=== PATIENT | male | born 1955 ===

== ENCOUNTER 2021-09-14 08:18 | Day surgery (SDC) | payer BC ==
[2021-09-14] VITALS (11 sets, daily range): BP systolic 102–134; BP diastolic 64–78; PULSE 45–64; TEMP 97.9–98.4
[~2021-09-14] VITALS: Ht 182.9 cm; Wt 132.8 kg
[2021-09-14] MEDS ORDERED: FLOMAX 0.40.4 MG/CAP PO (08:52)
[2021-09-14] MEDS ORDERED: BETAPACE 120MG120 MG PO (08:53)
[2021-09-14] MEDS ORDERED: ENTRESTO 24 MG1 EACH PO (08:53)
[2021-09-14] MEDS ORDERED: CIPRO 500MG TA500 MG PO (08:54)
[2021-09-14] MEDS ORDERED: XARELTO20 MG PO (08:55)
[2021-09-14] MEDS ORDERED: ZETIA 10MG TAB10 MG PO (08:56)
[2021-09-14] MEDS ORDERED: LIPITOR 80MG80 MG PO (08:56)
[2021-09-14] MEDS ORDERED: PYRIDIUM 100MG100 MG PO (10:27)
--- NOTE | 2021-09-14 12:30 | NUR ---
PT TO FLOOR FROM SURGERY IN ROOM 350. IN DAUGHTER ARE IN THE ROOM W PT. VS STABLE WITH BRADYCARDIA. PT REPORTS PAIN IN HIS LEFT HIP THAT HE HAD BEFORE THE PROCEDURE. IV FLUIDS RUNNING AT 100ML/HR IN LT WRIST. PT ON 2L OF O2. CBI OUTPUTTING RED/PINK URINE. NO OTHER NEEDS AT THIS TIME. CALL LIGHT WITHIN REACH.
--- NOTE | 2021-09-15 02:03 | NUR ---
PATIENT IN BED. ALERT AND ORIENTED. HS MEDS PER EMAR. MORALES TO DD WITH PINK URINE AND SOME SEDIMENT NOTED. CBI RUNNING SLOW. C/O PAIN TO L HIP/KNEE AND PRN TYLENOL GIVEN. PATIENT CURRENTLY IN BED, RESTING WITH EYES CLOSED. DENIES PAIN WHEN ASKED.
[2021-09-15 04:03] VITALS: BP 131/70; PULSE 64; TEMP 97.6
[2021-09-15 07:59] VITALS: BP 115/58; PULSE 57; TEMP 97.8
--- NOTE | 2021-09-15 08:30 | NUR ---
PT A&O RESTING IN BED WITH IN ROOM. MORNING MEDS GIVEN AND ASSESSMENT COMPLETED. DEBBIE CONNER IN WITH PT DISCUSSING REMOVAL OF URINARY CATHETER. PT DENIES PN. URINE IS A LIGHT PINK COLOR. NO OTHER NEEDS AT THIS TIME. CALL LIGHT WITHIN REACH.
--- NOTE | 2021-09-15 09:00 | NUR ---
ERON met with the patient and his , Rin (ph#[phone]), to discuss discharge plan. The patient lives in [place] with his . He reports independence with ADLs and does not use any assistive devices. He has a bipap for nights. The patient's PCP is Dr. Cota in [place]. The patient does not have a DPOA-HC in EMR, but he states that he does have one completed and that he designated his and then son. The patient plans to return home with his upon discharge. No additional needs at this time. *Discharge plan: home with *
--- NOTE | 2021-09-15 09:55 | NUR ---
CBI AND MORALES DISCONTINUED. 1250 IN MORALES BAG WITH LIGHT PINK URINE. PT INSTRUCTED TO VOID 6 TIMES TO MONITOR PROGRESS. NO OTHER NEEDS AT THIS TIME.
[2021-09-15 11:27] VITALS: BP 110/59; PULSE 62; TEMP 98
--- NOTE | 2021-09-15 14:43 | NUR ---
Starla: Other Situation: Asset Card Clerk went to room on rounds Background: PT was resting and watching tv Assessment: Pt had no needs and appreciated the visit Recommendation: Asset Card Clerk will follow up as needed
--- NOTE | 2021-09-15 16:00 | NUR ---
DISCHARGE INSTRUCTIONS GIVEN TO PT AND BY RN. QUESTIONS ANSWERED WITH UNDERSTANDING. LEFT BY AMBULATION TO PERSONAL VEHICLE TO HOME.
== END 2021-09-15 16:00 | disposition home or self-care (01) ==
LOC: SDCO 08:18 → SURG 12:30 → SDCO 09-15 16:00
DX: C61 Malignant neoplasm of prostate (principal)
CPT/HCPCS: OP; J0690; J1100; J1170; J2250; J2405; J2704; J3010; J3480; J7120